=== PATIENT | female | born 1975 | race Caucasian/White ===

== ENCOUNTER 2016-10-15 21:00 | Emergency (ER) | payer OTHER ==
[~2016-10-15 21:00] MED LIST: ALPRAZOLAM; BACTRIM DS TABL1 TA1 PO; KLONOPIN PO; LEXAPRO; LORTAB 5/500 TA1 TA1 PO; LORTAB 7.5-5001 TAB PO; NAPROSYN500 MG PO; NEURONTIN; NO MEDICATIONS; PEN-VEE K PO; PHENERGAN PO; SEROQUEL; TYLENOL #3 PO; VICODIN 5-3001 EACH PO; VICODIN 5/1 TAB 5/50 PO; VICODIN 5/500 T1 TAB PO
[2016-10-15 22:37] LABS: BUN/CREATININE RATIO 23.33; CALCIUM SERUM 8.7 mg/dL (8.4-10.2); CREATININE SERUM 0.6 mg/dL (0.6-1.4); GLOM FILT RATE Estimated 112.4 mL/min (>60); POTASSIUM 3.3 mmol/L (3.5-5.1)
[2016-10-15 23:16] LABS: AMPHETAMINE POS (NEG); BARBITURATES NEG (NEG); BENZODIAZEPINES POS (NEG); COCAINE NEG (NEG); MARIJUANA NEG (NEG); OPIATES POS (NEG); TRICYCLIC ANTIDEPRESSANTS NEG (NEG); U METHADONE NEG (NEG)
[2016-11-25] MEDS ORDERED: NO MEDICATIONS (02:17)
== END 2016-10-16 00:44 | disposition home or self-care (01) ==
LOC: CED 21:00
PROVIDERS: Physician Assistant Medical
DX: F19.10 Other psychoactive substance abuse, uncomplicated (principal); G89.29 Other chronic pain; F32.9 Major depressive disorder, single episode, unspecified; Z98.890 Other specified postprocedural states; F17.210 Nicotine dependence, cigarettes, uncomplicated
CPT/HCPCS: 80048; 80307; 99283

== ENCOUNTER 2016-11-25 03:26 | Emergency (ER) | payer OTHER | END 2016-11-25 03:27 | disposition home or self-care (01) | LOC: SED 03:26 | DX: K12.1 Other forms of stomatitis (principal); Z20.2 Contact with and (suspected) exposure to infections with a predominantly sexual mode of transmission; I10 Essential (primary) hypertension; F17.210 Nicotine dependence, cigarettes, uncomplicated | CPT/HCPCS: 96372; 99284; J0696 ==

== ENCOUNTER 2017-01-02 11:32 | Emergency (ER) | payer OTHER ==
--- NOTE | ~2017-01-02 | CT2 ---
[facility] A Service of [facility] RADIOLOGY TEXT RESULTS PATIENT: ANASTACIA CHAIDEZ LOCATION: [facility] : 73 UNIT #: [id number] AGE: [address]: Ollie Noland DO SEX: F ORDER DR: [id number] [facility] [address] [place], [place] [address] [id number] E MR#: [id number] #: [id number] NAME: ANASTACIA CHAIDEZ : 1975 SEX: F STUDY DATE/TIME: 01/02/2017 14:56 UNIT: [facility] ROOM: STUDY DESCRIPTION: CT Abd and Pelv W Cont Attending Physician: Ollie Noland D.O. Ordering Physician: Ollie Noland D.O. Primary Care Physician: Primary Care Physician No MEDICAL IMAGING REPORT This report is preliminary unless electronic signature is present EXAM CT of the abdomen and pelvis with IV contrast media HISTORY SUPPLIED Vaginal discharge. Low back pain and dysuria for 1 week. TECHNIQUE Axial imaging of the abdomen and pelvis was obtained with IV contrast media. This CT exam was performed with one or more of the following radiation dose reduction techniques: automatic exposure control, adjustment of mA and/or kV according to patient size, and iterative reconstruction. Lung bases are clear. Liver, gallbladder, spleen, adrenal glands pancreas and both kidneys are normal. No dilated or thickened loops of bowel are identified in the upper abdomen. Both the right and left kidney are normal. Appendix is normal. Uterus appears unremarkable. There are small follicular cysts in both ovaries. Cystic areas are identified in the cervix most likely representing multiple nabothian cysts. The largest of these is to the left and measures about 1.6 cm in diameter. These are present on the old studies of 2008. CONCLUSION 1. No acute findings in the abdomen or pelvis. 2. Probable multiple nabothian cysts within the cervix the largest measuring up to about 1.6 cm in diameter. These are present in 2008 as well. Dictated by... Rich Carbajal M.D. [facility] A Service of [facility] RADIOLOGY TEXT RESULTS PATIENT: ANASTACIA CHAIDEZ LOCATION: [facility] : 73 UNIT #: [id number] AGE: [address]: Ollie Noland DO SEX: F ORDER DR: THIS IS AN ELECTRONICALLY VERIFIED REPORT Rich Carbajal M.D. at 01/06/2017 7:14 AM Xavier TD: 01/02/2017 23:30 JOB #: [id number] MEDICAL IMAGING REPORT Page 1 of 1 COPY
[2017-01-02 12:52] LABS: URINE SOURCE CLEAN CATCH
[2017-01-02 13:05] LABS: BASOPHIL# 0.1 X10e3 (0-0.3); EOSINOPHIL# 0.1 X10e3 (0-0.7); EOSINOPHIL% 1.2 % (0.0-7.0); LYMPHOCYTE% 35.5 % (17.0-45.0); MEAN CELL VOLUME 89.3 FL (83-96); MEAN CORPUSCULAR HEMOGLOBIN 29.7 PG (28-34); MEAN CORPUSCULAR HGB CONC 33.3 g/dL (30-36); MEAN PLATELET VOLUME 6.8 FL (6.5-11.5); MONOCYTE# 0.3 X10e3 (0-1.0); MONOCYTE% 5.1 % (3.0-12.0); NEUTROPHIL# 3.2 X10e3 (1.5-7.1); NEUTROPHIL% 57.2 % (40-75); PLATELET COUNT 440 X10e3 (140-420); RED BLOOD COUNT 4.71 X10e (3.90-5.30); RED CELL DISTRIBUTION WIDTH 14.4 % (11.0-15.5); WHITE BLOOD COUNT 5.6 X10e3 (4.0-10.5)
[2017-01-02 13:10] LABS: DIFF IND NO
[2017-01-02 13:15] LABS: URINE APPEARANCE CLEAR; URINE BILIRUBIN NEG (NEG); URINE BLOOD NEG (NEG); URINE COLOR YELLOW; URINE GLUCOSE NEG (NEG); URINE KETONE NEG (NEG); URINE LEUKOCYTE ESTERASE NEG (NEG); URINE NITRATE NEG (NEG); URINE PH 8.5 (5-8); URINE PROTEIN NEG (NEG); URINE SPECIFIC GRAVITY 1.014 (1.003-1.035); URINE UROBILINOGEN 0.2 MG/DL (NEG)
[2017-01-02 13:31] LABS: ALBUMIN SERUM 4.3 g/dL (3.5-5.0); ALKALINE PHOSPHATASE 61 U/L (32-92); ALT (SGPT) 36 U/L (10-40); AST (SGOT) 40 U/L (10-42); BILIRUBIN,TOTAL 0.5 mg/dL (0.2-2.0); BLOOD UREA NITROGEN 7 mg/dL (9-23); BUN/CREATININE RATIO 11.66; CALCIUM SERUM 9.1 mg/dL (8.4-10.2); CARBON DIOXIDE 25 mmol/L (22-31); CHLORIDE 98 mmol/L (100-111); CREATININE SERUM 0.6 mg/dL (0.6-1.4); GLOM FILT RATE Estimated 111.6 mL/min (>60); GLUCOSE FASTING 81 mg/dL (70-110); LIPASE 35 U/L (22-51); POTASSIUM 3.9 mmol/L (3.5-5.1); PROTEIN TOTAL SERUM 7.8 g/dL (6.0-8.3); SODIUM 131 mmol/L (135-145)
[2017-01-02 13:34] LABS: CULTURE INDICATED? NO
[2017-01-02 13:34] LABS: BILIRUBIN, DIRECT <0.1 mg/dL (0.0-0.2); BILIRUBIN,INDIRECT 0.4 mg/dL (0.0-0.9)
[2017-01-02 13:38] LABS: AMPHETAMINE POS (NEG); BARBITURATES NEG (NEG); BENZODIAZEPINES NEG (NEG); COCAINE NEG (NEG); MARIJUANA NEG (NEG); OPIATES NEG (NEG); TRICYCLIC ANTIDEPRESSANTS POS (NEG); U METHADONE NEG (NEG)
[2017-01-05 01:24] LABS: CHLAMYDIA TRACH Not Detected (Not Detected); N GONOR Not Detected (Not Detected)
== END 2017-01-02 17:25 | disposition home or self-care (01) ==
LOC: CED 11:32
PROVIDERS: Emergency Medicine
DX: R10.2 Pelvic and perineal pain (principal); M54.5 Low back pain; Z20.2 Contact with and (suspected) exposure to infections with a predominantly sexual mode of transmission; F15.10 Other stimulant abuse, uncomplicated; F17.200 Nicotine dependence, unspecified, uncomplicated
CPT/HCPCS: 36415; 74177; 80048; 80076; 80307; 81003; 83690; 84703; 85025; 87491; 87591; 87808; 87905; 96372; 96374; 99284; J0696; J1885; Q9967

== ENCOUNTER 2017-02-05 01:43 | Emergency (ER) | payer OTHER ==
[~2017-02-05] VITALS: Ht 172.7 cm; Wt 81.6 kg
--- NOTE | ~2017-02-05 | EKG ---
PATIENT: KAYLYNN ANASTACIA UNIT #: [id number] Ventricular Rate: 101 BPM Atrial Rate: 101 BPM P-R Interval: 134 ms QRS Duration: 92 ms Q-T Interval: 360 ms QTC Calculation(Bezet): 466 ms P [place]: 59 degrees Calculated R [place]: 58 degrees Calculated T [place]: 50 degrees Diagnosis Line: Sinus tachycardia Diagnosis Line: Possible Left atrial enlargement Diagnosis Line: Borderline ECG Diagnosis Line: No previous ECGs available Diagnosis Line: Confirmed by MARION MOMIN MD ([id number]) on Diagnosis Line: 02/05/2017 2:02:03 PM INTERPRETING MD: MERRILL MATT
--- NOTE | ~2017-02-05 | CR72 ---
[facility] A Service of [facility] RADIOLOGY TEXT RESULTS PATIENT: ANASTACIA CHAIDEZ LOCATION: [facility] : 73 UNIT #: [id number] AGE: [address]: Michela Mcfarland SEX: F ORDER DR: [id number] [facility] [address] [place], [place] [address] [id number] E MR#: [id number] Acc #: [id number] NAME: ANASTACIA CHAIDEZ : 1975 SEX: F STUDY DATE/TIME: 02/05/2017 2:05 UNIT: [facility] ROOM: STUDY DESCRIPTION: CR Chest Single View Portable Attending Physician: Michela Mcfarland Pa-C Ordering Physician: [facility] Primary Care Physician: Lexi Coulter M.D. MEDICAL IMAGING REPORT This report is preliminary unless electronic signature is present EXAM Portable chest INDICATIONS Chest pain tonight. TECHNIQUE Frontal view chest. FINDINGS The heart size normal. Lungs are clear. No pleural fluid. No pneumothorax. IMPRESSION No active process. Dictated by... Wilmer Morales M.D. THIS IS AN ELECTRONICALLY VERIFIED REPORT Wilmer Morales M.D. at 02/05/2017 9:54 PM EED/pcl TD: 02/05/2017 08:33 JOB #: [id number] MEDICAL IMAGING REPORT Page 1 of 1 COPY
[2017-02-05 02:24] LABS: BASOPHIL# 0.1 X10e3 (0-0.3); BASOPHIL% 0.9 % (0-2.5); DIFF IND NO; EOSINOPHIL% 0.1 % (0.0-7.0); HEMATOCRIT 39.9 % (35.0-45.0); HEMOGLOBIN 13.2 gm/dL (12.0-16.0); LYMPHOCYTE# 1.8 X10e3 (1.0-3.5); LYMPHOCYTE% 15.7 % (17.0-45.0); MEAN CELL VOLUME 89.7 FL (83-96); MEAN CORPUSCULAR HEMOGLOBIN 29.6 PG (28-34); MEAN PLATELET VOLUME 6.8 FL (6.5-11.5); MONOCYTE# 0.4 X10e3 (0-1.0); MONOCYTE% 3.9 % (3.0-12.0); NEUTROPHIL% 79.4 % (40-75); PLATELET COUNT 411 X10e3 (140-420); RED BLOOD COUNT 4.45 X10e (3.90-5.30); RED CELL DISTRIBUTION WIDTH 14.4 % (11.0-15.5); WHITE BLOOD COUNT 11.3 X10e3 (4.0-10.5)
[2017-02-05 02:29] LABS: POC - CKMB <1.0 ng/mL (0.0-7.9); POC - TROPONIN <0.05 ng/mL (<=0.05)
[2017-02-05 02:35] LABS: AMPHETAMINE POS (NEG); BARBITURATES NEG (NEG); BENZODIAZEPINES NEG (NEG); COCAINE NEG (NEG); MARIJUANA NEG (NEG); OPIATES NEG (NEG); TRICYCLIC ANTIDEPRESSANTS POS (NEG); U METHADONE NEG (NEG)
[2017-02-05 02:47] LABS: ALBUMIN SERUM 4.1 g/dL (3.5-5.0); ALKALINE PHOSPHATASE 60 U/L (32-92); ALT (SGPT) 17 U/L (10-40); AST (SGOT) 18 U/L (10-42); BILIRUBIN,TOTAL 0.3 mg/dL (0.2-2.0); BLOOD UREA NITROGEN 12 mg/dL (9-23); CALCIUM SERUM 8.7 mg/dL (8.4-10.2); CARBON DIOXIDE 23 mmol/L (22-31); CHLORIDE 108 mmol/L (100-111); CREATININE SERUM 0.8 mg/dL (0.6-1.4); GLOM FILT RATE Estimated 90.4 mL/min (>60); GLUCOSE FASTING 112 mg/dL (70-110); POTASSIUM 3.6 mmol/L (3.5-5.1); PROTEIN TOTAL SERUM 7.5 g/dL (6.0-8.3); SODIUM 137 mmol/L (135-145)
[2017-02-05 02:53] LABS: BILIRUBIN, DIRECT <0.1 mg/dL (0.0-0.2); BILIRUBIN,INDIRECT 0.2 mg/dL (0.0-0.9)
== END 2017-02-05 03:15 | disposition home or self-care (01) ==
LOC: CED 01:43
PROVIDERS: Physician Assistant
DX: R07.9 Chest pain, unspecified (principal); F41.9 Anxiety disorder, unspecified; F17.200 Nicotine dependence, unspecified, uncomplicated
CPT/HCPCS: 36415; 71010; 80048; 80076; 80307; 82553; 84484; 84703; 85025; 93005; 99285